=== PATIENT | female | born 1970 | race African-American/Black ===

== ENCOUNTER 2023-07-06 10:16 | Emergency (ER) | payer BC ==
[~2023-07-06] VITALS: Ht 165.1 cm; Wt 48.5 kg
[2023-07-06 10:23] VITALS: TEMP 98.9
[2023-07-06] MEDS ORDERED: OLANZAPINE 5 MG TABLET PO ONE ×2 (11:00→16:00)
[2023-07-06 11:04] LABS: BASOPHILS % (AUTO) 0.4 % (0.0-2.0); EOSINOPHILS % (AUTO) 0.1 % (0.0-6.0); HEMATOCRIT 39 % (33-45); HEMOGLOBIN 13.5 g/dL (11.5-14.8); LYMPHOCYTES # (AUTO) 1.1 K/uL (0.8-4.8); MEAN CORPUSCULAR HEMOGLOBIN 35 PG (26.0-33.0); MEAN CORPUSCULAR HGB CONC 34 g/dl (31.0-36.0); MEAN CORPUSCULAR VOLUME 103 fL (82-100); MONOCYTES # (AUTO) 0.3 K/uL (0.1-1.30); MONOCYTES % (AUTO) 7.2 % (2.0-12.0); NEUTROPHILS % (AUTO) 68.3 % (43.0-81.0); PLATELET COUNT (AUTO) 184 K/uL (150-450); RED BLOOD CELL COUNT(AUTO) 3.82 MIL/uL (4.0-5.2); RED CELL DISTRIBUTION WIDTH 12.6 % (11.5-15.0); WHITE BLOOD COUNT (AUTO) 4.4 K/uL (4.3-11.0)
[2023-07-06] MEDS ORDERED: OLANZAPINE 5 MG TABLET ONE ×2 (11:05→16:11)
[2023-07-06 11:15] LABS: CALCIUM, SERUM 9.6 mg/dL (8.5-10.1); CARBON DIOXIDE 23 mmol/L (21-32); CHLORIDE 102 mmol/L (98-107); CREATININE 0.9 mg/dL (0.6-1.3); GLUCOSE 91 mg/dL (74-106); POTASSIUM 3.2 mmol/L (3.5-5.1); SODIUM SERUM 137 mmol/L (136-145); UREA NITROGEN, BLOOD 19 mg/dL (7-18)
[2023-07-06 11:21] LABS: ALANINE AMINOTRANSFERASE 62 U/L (12-78); ALBUMIN 4.4 g/dL (3.4-5.0); ALKALINE PHOSPHATASE 55 U/L (46-116); ASPARTATE AMINOTRANSFERASE 107 U/L (15-37); BILIRUBIN,DIRECT 0.3 mg/dL (0.0-0.2); BILIRUBIN,TOTAL 1.2 mg/dL (0.2-1.0); TOTAL PROTEIN, SERUM 8.1 g/dL (6.4-8.2)
[2023-07-06 11:23] LABS: ACETAMINOPHEN <10 ug/ml (10-30); SALICYLATE < 0.2 mg/dL (2.8-20.0)
[2023-07-06 11:24] LABS: ALCOHOL, BLOOD < 3 mg/dL (0-10)
[2023-07-06] MEDS ORDERED: POTASSIUM CHLORIDE 20 MEQ TAB.PRT.SR PO ONE ×3 (12:30→12:39)
[2023-07-06] MEDS ORDERED: LORAZEPAM 1 MG TABLET PO ONE (16:00)
[2023-07-06] MEDS ORDERED: LORAZEPAM 1 MG TABLET ONE (16:11)
[2023-07-06 19:40] LABS: APPEARANCE,URINE CLEAR (CLEAR); BILIRUBIN,URINE 1+ (NEGATIVE); BLOOD, URINE NEGATIVE Ery/uL (NEGATIVE); COLOR,URINE YELLOW (YELLOW); KETONES,URINE 2+ mg/dL (NEGATIVE); LEUKOCYTE ESTERASE ,URINE 1+ (NEGATIVE); NITRITE, URINE NEGATIVE (NEGATIVE); PROTEIN,URINE NEGATIVE (NEGATIVE); UGLUCOSE NEGATIVE (NEGATIVE)
[2023-07-06 19:50] LABS: AMPHETAMINE, URINE NEGATIVE (NEGATIVE); BARBITURATE, URINE NEGATIVE (NEGATIVE); BENZODIAZEPINE, URINE NEGATIVE (NEGATIVE); CANNABINOID, URINE NEGATIVE (NEGATIVE); COCCAINE, URINE NEGATIVE (NEGATIVE); OPIATE, URINE NEGATIVE (NEGATIVE); PHENCYCLIDINE SCREEN,URINE NEGATIVE (NEGATIVE)
[2023-07-06 20:12] LABS: ADD URINE CULTURE YES; BACTERIA,URINE 1+ /HPF (None Seen); RBC,URINE NONE SEEN /HPF (0-2)
[2023-07-06] MEDS ORDERED: CEPHALEXIN MONOHYDRATE 500 MG CAPSULE PO SCH (21:00)
[2023-07-06] MEDS ORDERED: CEPHALEXIN MONOHYDRATE 500 MG CAPSULE PO ONE (21:01)
[2023-07-07 07:04] VITALS: BP 110/61; O2SAT 100
[2023-07-10] MEDS ORDERED: CLIN300C3 PO (12:37)
[2023-07-10] MEDS ORDERED: OLAN10TA3 PO (12:38)
== END 2023-07-07 07:04 | disposition home or self-care (01) ==
LOC: ER 10:18
DX: F29 Unspecified psychosis not due to a substance or known physiological condition (principal)
CPT/HCPCS: 36415; 80048-TC; 80076-TC; 81001; 85025-TC; 87086-TC; G0480

== ENCOUNTER 2023-07-08 19:41 | Inpatient (IN) | payer BC, MEDICAID ==
[~2023-07-08] VITALS: Ht 165.1 cm; Wt 47.6 kg
[2023-07-08 20:45] LABS: BASOPHILS % (AUTO) 0.6 % (0.0-2.0); EOSINOPHILS % (AUTO) 0.7 % (0.0-6.0); HEMATOCRIT 40 % (33-45); HEMOGLOBIN 13.3 g/dL (11.5-14.8); LYMPHOCYTES # (AUTO) 0.7 K/uL (0.8-4.8); LYMPHOCYTES % (AUTO) 25.1 % (20.0-44.0); MEAN CORPUSCULAR HEMOGLOBIN 35 PG (26.0-33.0); MEAN CORPUSCULAR HGB CONC 34 g/dl (31.0-36.0); MEAN CORPUSCULAR VOLUME 105 fL (82-100); MONOCYTES # (AUTO) 0.2 K/uL (0.1-1.30); MONOCYTES % (AUTO) 6.5 % (2.0-12.0); NEUTROPHILS # (AUTO) 1.9 K/uL (1.8-8.9); NEUTROPHILS % (AUTO) 67.1 % (43.0-81.0); PLATELET COUNT (AUTO) 178 K/uL (150-450); RED BLOOD CELL COUNT(AUTO) 3.81 MIL/uL (4.0-5.2); RED CELL DISTRIBUTION WIDTH 12.7 % (11.5-15.0); WHITE BLOOD COUNT (AUTO) 2.8 K/uL (4.3-11.0)
[2023-07-08 20:50] LABS: APPEARANCE,URINE CLEAR (CLEAR); BILIRUBIN,URINE NEGATIVE (NEGATIVE); BLOOD, URINE NEGATIVE Ery/uL (NEGATIVE); COLOR,URINE YELLOW (YELLOW); KETONES,URINE 1+ mg/dL (NEGATIVE); LEUKOCYTE ESTERASE ,URINE NEGATIVE (NEGATIVE); NITRITE, URINE NEGATIVE (NEGATIVE); PROTEIN,URINE NEGATIVE (NEGATIVE); UGLUCOSE NEGATIVE (NEGATIVE)
[2023-07-08 21:04] LABS: ADD URINE CULTURE NO; BACTERIA,URINE None seen /HPF (None Seen); RBC,URINE 0-2 /HPF (0-2); WBC,URINE 0-2 /HPF (0-3)
[2023-07-08 21:20] LABS: AMPHETAMINE, URINE NEGATIVE (NEGATIVE); BARBITURATE, URINE NEGATIVE (NEGATIVE); BENZODIAZEPINE, URINE NEGATIVE (NEGATIVE); CANNABINOID, URINE NEGATIVE (NEGATIVE); COCCAINE, URINE NEGATIVE (NEGATIVE); OPIATE, URINE NEGATIVE (NEGATIVE); PHENCYCLIDINE SCREEN,URINE NEGATIVE (NEGATIVE)
[2023-07-08 21:22] LABS: CALCIUM, SERUM 9.2 mg/dL (8.5-10.1); CARBON DIOXIDE 24 mmol/L (21-32); CHLORIDE 105 mmol/L (98-107); CREATININE 0.8 mg/dL (0.6-1.3); GLUCOSE 105 mg/dL (74-106); SODIUM SERUM 142 mmol/L (136-145); UREA NITROGEN, BLOOD 11 mg/dL (7-18)
[2023-07-08 21:24] LABS: POTASSIUM 2.8 mmol/L (3.5-5.1)
[2023-07-08 21:30] LABS: ALANINE AMINOTRANSFERASE 68 U/L (12-78); ALBUMIN 4.1 g/dL (3.4-5.0); ALCOHOL, BLOOD < 3 mg/dL (0-10); ALKALINE PHOSPHATASE 52 U/L (46-116); ASPARTATE AMINOTRANSFERASE 73 U/L (15-37); BILIRUBIN,DIRECT 0.2 mg/dL (0.0-0.2); BILIRUBIN,TOTAL 0.8 mg/dL (0.2-1.0); TOTAL PROTEIN, SERUM 7.9 g/dL (6.4-8.2)
[2023-07-08] MEDS ORDERED: POTASSIUM CHLORIDE 20 MEQ TAB.PRT.SR PO ONE (21:30)
[2023-07-08 21:31] LABS: ACETAMINOPHEN <10 ug/ml (10-30); SALICYLATE 0.3 mg/dL (2.8-20.0)
[2023-07-08] MEDS ORDERED: CLINDAMYCIN HCL 150 MG CAPSULE ONE (21:39)
[2023-07-08] MEDS: POTASSIUM CL. PREMIX PERIPHER. 50 ML IV SCH ×3 (21:50→23:50)
[2023-07-08] MEDS ORDERED: CLINDAMYCIN HCL 150 MG CAPSULE PO ONE (22:00)
[2023-07-08 22:28] LABS: LYMPHOCYTES % (MANUAL) 25 % (16-48); MONOCYTES % (MANUAL) 3 % (0-11.0); NEUTROPHILS % (MANUAL) 72 (42-76); PLATELET ESTIMATE ADEQUATE
[2023-07-08 22:29] LABS: ANISOCYTOSIS 1+
[2023-07-08] MEDS ORDERED: IV NS 0.9% 1,000 ML IV PRN (23:00)
[2023-07-08] MEDS ORDERED: MAGNESIUM HYDROXIDE 30 ML UDC PO PRN (23:00)
[2023-07-08] MEDS ORDERED: Z GUARD REMEDY 4 OZ OINT TP PRN (23:00)
[2023-07-08] MEDS ORDERED: ONDANSETRON HCL/PF 4 MG/2 ML VIAL IVP PRN (23:00)
[2023-07-08] MEDS ORDERED: MAG HYDROX/AL HYDROX/SIMETH 30 ML UDC PO PRN (23:00)
[2023-07-08] MEDS ORDERED: TEMAZEPAM 15 MG CAPSULE PO PRN (23:00)
[2023-07-08] MEDS ORDERED: HYDROCODONE/APAP 5/325MG TABLET PO PRN (23:00)
[2023-07-09] MEDS ORDERED: OLAN5TAB3 PO (00:58)
[2023-07-09] MEDS ORDERED: ARIP5TAB10 PO (00:59)
[2023-07-09] MEDS ORDERED: ARIP2TAB3 PO (00:59)
[2023-07-09] MEDS: POTASSIUM CL. PREMIX PERIPHER. 50 ML IV SCH (01:00)
[2023-07-09] MEDS ORDERED: FLUO10CA26 PO (01:00)
[2023-07-09 01:19] VITALS: BP 113/72; TEMP 98.1; O2SAT 99
[2023-07-09 06:13] LABS: BASOPHILS % (AUTO) 0.9 % (0.0-2.0); EOSINOPHILS % (AUTO) 1.6 % (0.0-6.0); HEMATOCRIT 37 % (33-45); HEMOGLOBIN 12.6 g/dL (11.5-14.8); LYMPHOCYTES # (AUTO) 0.7 K/uL (0.8-4.8); LYMPHOCYTES % (AUTO) 33.7 % (20.0-44.0); MEAN CORPUSCULAR HEMOGLOBIN 36 PG (26.0-33.0); MEAN CORPUSCULAR HGB CONC 34 g/dl (31.0-36.0); MEAN CORPUSCULAR VOLUME 104 fL (82-100); MONOCYTES # (AUTO) 0.2 K/uL (0.1-1.30); MONOCYTES % (AUTO) 8.5 % (2.0-12.0); NEUTROPHILS # (AUTO) 1.2 K/uL (1.8-8.9); NEUTROPHILS % (AUTO) 55.3 % (43.0-81.0); PLATELET COUNT (AUTO) 159 K/uL (150-450); RED BLOOD CELL COUNT(AUTO) 3.53 MIL/uL (4.0-5.2); RED CELL DISTRIBUTION WIDTH 12.5 % (11.5-15.0); WHITE BLOOD COUNT (AUTO) 2.2 K/uL (4.3-11.0)
[2023-07-09 06:42] LABS: CALCIUM, SERUM 9.1 mg/dL (8.5-10.1); CREATININE 0.7 mg/dL (0.6-1.3); MAGNESIUM 2.4 mg/dL (1.8-2.4); PHOSPHORUS 2.8 mg/dL (2.5-4.9); POTASSIUM 3.5 mmol/L (3.5-5.1)
[2023-07-09 07:11] LABS: THYROID STIMULATING HORMONE 0.57 uIU/mL (0.358-3.74)
[2023-07-09 08:00] VITALS: BP 107/71; TEMP 98.8; O2SAT 99
[2023-07-09] MEDS: CLINDAMYCIN HCL 150 MG CAPSULE PO SCH ×4 (08:23→20:45)
[2023-07-09] MEDS: PANTOPRAZOLE 40 MG TABLET.DR PO SCH (08:24)
[2023-07-09] MEDS: ACETAMINOPHEN 325 MG TABLET PO PRN (11:32)
[2023-07-09 16:00] VITALS: BP 115/79; TEMP 99.1; O2SAT 98
[2023-07-09] MEDS ORDERED: OLANZAPINE 5 MG TABLET PO SCH (17:00)
[2023-07-09] MEDS: ENSURE ENLIVE CHOC 237 ML CAN PO SCH (17:22)
[2023-07-09 20:00] VITALS: BP 110/75; TEMP 98.4; O2SAT 98
[2023-07-10] MEDS: ACETAMINOPHEN 325 MG TABLET PO PRN ×2 (00:24→06:16)
[2023-07-10 07:00] VITALS: BP 139/87; TEMP 97.9; O2SAT 99
[2023-07-10] MEDS: PANTOPRAZOLE 40 MG TABLET.DR PO SCH (07:30)
[2023-07-10] MEDS: ENSURE ENLIVE CHOC 237 ML CAN PO SCH (08:00)
[2023-07-10] MEDS ORDERED: MULTIVIT W/MINERALS 1 TAB TABLET PO SCH (09:00)
[2023-07-10] MEDS: CLINDAMYCIN HCL 150 MG CAPSULE PO SCH (09:00)
[2023-07-10] MEDS ORDERED: CLIN300C3 PO (12:37)
[2023-07-10] MEDS ORDERED: OLAN10TA3 PO (12:38)
[2023-07-10] MEDS ORDERED: OLANZAPINE 10 MG TABLET PO SCH (20:00)
== END 2023-07-10 13:15 | disposition home or self-care (01) | DRG 421 ==
LOC: ER 19:50 → TELE1 07-09 00:28 → TELE 07-09 00:35 → MED 07-09 03:53
PROVIDERS: ADMIT Nurse Practitioner Acute Care; ATTEND Nurse Practitioner Acute Care
DX: R62.7 Adult failure to thrive (principal); R64 Cachexia; E43 Unspecified severe protein-calorie malnutrition; F29 Unspecified psychosis not due to a substance or known physiological condition; L03.115 Cellulitis of right lower limb; E87.6 Hypokalemia; Z68.1 Body mass index [BMI] 19.9 or less, adult; F20.9 Schizophrenia, unspecified; F31.9 Bipolar disorder, unspecified; Z90.710 Acquired absence of both cervix and uterus; Z91.148 Patient's other noncompliance with medication regimen for other reason; M25.561 Pain in right knee; W19.XXXA Unspecified fall, initial encounter; Y92.9 Unspecified place or not applicable
CPT/HCPCS: 36415; 71045-TC; 80048-TC; 80076-TC; 81001; 83735-TC; 84100-TC; 84443-TC; 84484-TC; 85025-TC; A4223; G0378; G0480; J3480